=== PATIENT | male | born 1955 | race Caucasian/White ===

== ENCOUNTER 2016-10-26 15:11 | Emergency (ER) | payer OTHER ==
[~2016-10-26] VITALS: Ht 167.6 cm; Wt 86.2 kg
[2016-10-26 17:05] VITALS: BP 130/89
== END 2016-10-26 16:50 | disposition home or self-care (01) ==
LOC: EDBD 15:11 → ED 15:11
DX: R09.89 Other specified symptoms and signs involving the circulatory and respiratory systems (principal); E11.9 Type 2 diabetes mellitus without complications; I10 Essential (primary) hypertension; E78.00 Pure hypercholesterolemia, unspecified